=== PATIENT | female | born 1990 | race Caucasian/White ===

== ENCOUNTER 2017-07-02 19:29 | Emergency (ER) | payer OTHER ==
[2017-07-02 19:45] VITALS: TEMP 98.8; O2SAT 97
--- NOTE | 2017-07-02 20:40 | EDPHY ---
H & P Time Seen by Provider: 07/02/17 20:14 HPI/ROS: CHIEF COMPLAINT: Head injury HISTORY OF PRESENT ILLNESS: Patient is a 26-year-old female G1 para 0, 21 weeks , who presents to the emergency department after having a softball strike her in the head. She has a laceration over her left eye. She did not lose consciousness. No significant headache. No nausea or vomiting. No focal neurologic deficits. No abdominal pain. REVIEW OF SYSTEMS: Negative Past Medical/Surgical History: Currently Past surgical history: [place] tooth extraction Smoking Status: Never smoked Physical Exam: 37.1, 124/72, 110, 14 97% on room air General Appearance: Alert and no distress. Head: Pupils equal. Normal. Patient has a 2 cm crescent shaped laceration on her left brow. This extends into her left eyebrow. No deep tissues involved. Her eyes are normal. PERRLA. Extraocular movement intact. Respiratory: No respiratory distress. Cardiac: regular rate and rhythm. Abdomen: Gravid. Extremities: Full range of motion, normal appearing. Skin: No rashes or lesions. Neuro: Alert. Normal mood and affect. Constitutional: Initial Vital Signs Temperature (C) 37.1 C 07/02/17 19:41 Heart Rate 110 H 07/02/17 19:41 Respiratory Rate 14 07/02/17 19:41 Blood Pressure 124/72 H 07/02/17 19:41 O2 Sat (%) 97 07/02/17 19:41 O2 Delivery Mode Room Air Allergies/Adverse Reactions: amoxicillin Allergy (Verified 07/02/17 19:40) Home Medications: Medication Instructions Recorded 07/02/17 Medical Decision Making Procedures: Procedure: Laceration repair. Verbal consent was obtained from the patient. The 2 cm laceration on the left brow was anesthetized in the usual fashion. The wound was irrigated, draped and explored to its base with a gloved finger. There were no deep structures involved. The wound was repaired with 6 0 nylon. The wound repair was simple. The procedure was performed by myself. ED Course/Re-evaluation: In the emergency department I discussed the plan with the patient. I answered all her questions. The patient had her wound anesthetized, cleaned and repaired. Patient tolerated the procedure well. I do not feel the patient needs a CT scan at this time. She is given warnings prior to leaving. She will return with worsening symptoms. Differential Diagnosis: My differential includes but is not limited to laceration, deep tissue injury, concussion, subarachnoid hemorrhage, subdural hematoma, epidural hematoma Departure - Departure Disposition: Home, Routine, Self-Care Clinical Impression: Laceration Condition: Good Instructions: Laceration (ED) Additional Instructions: Wound Care Follow-Up: Removal of sutures in [ 8 ] days. Suture removal is complimentary in uncomplicated cases. Infection or abnormal findings would require reevaluation by the MD. In that case, you may be billed. Referrals: Aly Mojica MD [Medical Doctor] - 5-7 days, if not improved
[2017-07-02 21:11] VITALS: BP 108/76; PULSE 67; RESP 15
== END 2017-07-10 07:57 | disposition home or self-care (01) ==
PROC: 0HQ1XZZ Repair Face Skin, External Approach (ICD-10-PCS; principal; 2017-07-02)
DX: O9A.212 Injury, poisoning and certain other consequences of external causes complicating pregnancy, second trimester (principal); S01.112A Laceration without foreign body of left eyelid and periocular area, initial encounter; W21.07XA Struck by softball, initial encounter; Y99.8 Other external cause status